=== PATIENT | female | born 1950 | race Caucasian/White ===

== ENCOUNTER 2017-07-04 15:14 | Inpatient (IN) | payer BC ==
[2017-07-04] MEDS ORDERED: Acetaminophen 325 MG Tab PO PRN (15:33)
[2017-07-04] MEDS ORDERED: Sodium Chloride 0.9% 10 ML Syringe FLUSH PRN (15:33)
[2017-07-04] MEDS ORDERED: Ondansetron 4 MG/2 ML SDV IV PRN (15:33)
[2017-07-04] MEDS ORDERED: Temazepam 15 MG Cap PO PRN (15:33)
[2017-07-04] MEDS ORDERED: Magnesium Hydroxide 400 MG/5 ML Susp 30 ML Cup PO PRN (15:33)
[2017-07-04] MEDS ORDERED: Calcium Carbonate 500 MG Tab.Chew PO PRN (15:37)
[2017-07-04] MEDS ORDERED: Enoxaparin 30 MG/0.3 ML Syringe SUBCUT SCH (15:45)
[2017-07-04 16:17] LABS: CHLORIDE,CL 101 mEq/L (98-106); SODIUM,NA 139 mEq/L (136-145)
[2017-07-04] MEDS ORDERED: Iopamidol 755 Mg/ML 100 ML Bottle IVPUSH ONE (16:28)
[2017-07-04] MEDS: methylPREDNISolone Sodium Succinate 125 MG/2 ML SDV IVPUSH SCH (16:56)
[2017-07-04] MEDS: cefTRIAXone 1 GM Vial IVPUSH SCH (16:58)
[2017-07-04] MEDS: Azithromycin 500 MG in Sodium Chloride 0.9% 250 ML IV SCH (17:02)
[2017-07-04] MEDS: Albuterol/Ipratropium 3.0-0.5 MG/3 ML Neb Soln NEB SCH ×2 (17:04→21:59)
[2017-07-05] MEDS: methylPREDNISolone Sodium Succinate 125 MG/2 ML SDV IVPUSH SCH ×2 (03:11→14:39)
[2017-07-05] MEDS ORDERED: Albuterol 0.083% 2.5 MG/3 ML Neb Soln INH PRN (07:40)
[2017-07-05] MEDS ORDERED: Montelukast 10 MG Tab PO SCH ×2 (08:00→20:00)
[2017-07-05] MEDS ORDERED: Albuterol 8 GM Inhaler INH SCH (08:00)
[2017-07-05] MEDS: Albuterol/Ipratropium 3.0-0.5 MG/3 ML Neb Soln NEB SCH ×4 (08:14→20:11)
[2017-07-05] MEDS: Hydrochlorothiazide 25 MG Tab PO SCH (08:14)
[2017-07-05] MEDS: Formoterol/Mometasone 100-5 MCG 8.8 GM Inhaler IH SCH ×2 (08:37→20:11)
[2017-07-05] MEDS: Levothyroxine 112 MCG Tab PO SCH (08:38)
--- NOTE | 2017-07-05 11:05 | PN ---
DATE: 07/05/2017 HISTORY: This is a 66-year-old female who came in with severe asthmatic bronchitis, yesterday, very dyspneic, admitted to the hospital. CTA chest, no PE, no masses. PHYSICAL EXAMINATION: This morning, NECK: Supple. CHEST: Inexpiratory wheezing. CARDIAC: Sounds are good. EXTREMITIES: No edema. LABORATORY DATA: Lab looked good. D-dimer was elevated at 1.58. White count elevated at 13.3. Otherwise everything else looks good. ASSESSMENT: ACUTE ASTHMATIC BRONCHITIS. P: Continue present therapy. MAGGI/LEBRON /[id number]
[2017-07-05] MEDS: cefTRIAXone 1 GM Vial IVPUSH SCH (14:42)
[2017-07-05] MEDS: Azithromycin 500 MG in Sodium Chloride 0.9% 250 ML IV SCH (14:46)
[2017-07-06] MEDS: methylPREDNISolone Sodium Succinate 125 MG/2 ML SDV IVPUSH SCH (02:37)
[2017-07-06] MEDS: Albuterol/Ipratropium 3.0-0.5 MG/3 ML Neb Soln NEB SCH (07:46)
[2017-07-06] MEDS: Levothyroxine 112 MCG Tab PO SCH (07:47)
[2017-07-06] MEDS: Hydrochlorothiazide 25 MG Tab PO SCH (07:47)
[2017-07-06] MEDS: Formoterol/Mometasone 100-5 MCG 8.8 GM Inhaler IH SCH (07:50)
--- NOTE | 2017-07-06 08:32 | DISCH ---
HOSPITAL COURSE: This is a 66-year-old female we attempted to treat as an outpatient for acute asthmatic bronchitis, came back severely dyspneic. D-dimer was elevated, so I did do a CTA of her chest which was normal. I did start an IV antibiotics, IV steroids, it run nicely. At the time of discharge, her lungs were relatively clear. Labs here in the hospital; urinalysis looked good. Again, D-dimer was elevated. CBC looked good. Mildly elevated white count probably from the steroids. DISPOSITION: The patient now discharged home to be seen back on a p.r.n. basis. DISCHARGE MEDICATIONS: Home medications plus Ceftin 250 p.o. b.i.d. for 7 days and prednisone 20 daily for 5 days. DISCHARGE DIAGNOSIS: 1. ACUTE ASTHMATIC BRONCHITIS. 2. HYPOTHYROIDISM. MAGGI/LEBRON /[id number]
== END 2017-07-06 10:13 | disposition home or self-care (01) | DRG 138 ==
LOC: UNDOADMIN 15:14 → CC.MS 15:14
PROVIDERS: ADMIT General Practice; ATTEND General Practice
DX: J21.9 Acute bronchiolitis, unspecified (principal); J45.909 Unspecified asthma, uncomplicated; E03.9 Hypothyroidism, unspecified; Z88.0 Allergy status to penicillin; Z88.1 Allergy status to other antibiotic agents; I10 Essential (primary) hypertension; Z88.8 Allergy status to other drugs, medicaments and biological substances; Z79.899 Other long term (current) drug therapy
CPT/HCPCS: 36415; 71275; 80053; 81001; 83735; 83880; 84443; 85025; 85379; 86140; 93005; 94640; A9270-GY; J0456; J0696; J2930; J7050; Q9967

== ENCOUNTER → 2018-02-10 | Day surgery (SDC) | payer MEDICARE, OTHER ==
[~2018-02-10] MED LIST: Glycopyrrolate 0.2 MG/ML SDV IVPUSH ONE; Lactated Ringers 1,000 ML IV SCH; Propofol 200 MG/20 ML SDV IV ONE
--- NOTE | 2018-02-10 13:53 | OR ---
DATE OF OPERATION: 02/10/2018 PREOPERATIVE DIAGNOSIS: 1. GASTROESOPHAGEAL REFLUX DISEASE. 2. FOLLOW UP COLON POLYPS. POSTOPERATIVE DIAGNOSIS: 1. GASTROESOPHAGEAL REFLUX DISEASE. 2. FOLLOW UP COLON POLYPS. SURGEON: Cyrus Fabian MD PROCEDURE: 1. EGD WITH BIOPSIES X4, RACHEL. 2. FULL-LENGTH COLONOSCOPY. ANESTHESIA: HOSPITALITY SPECIALIST. COMPLICATIONS: None. SPECIMEN: 1. Duodenal bulb biopsy x2. 2. RACHEL. 3. Fundal biopsy x1. 4. Distal esophageal biopsy x1. FINDINGS: 1. Full-length EGD. 2. Heterotopic gastric tissue, duodenal bulb. 3. Ectopic pancreatic tissue, gastric fundus. 4. Small hiatal hernia with reflux esophagitis, mild. 5. Full-length colonoscopy. 6. Minimal diverticulosis. RECOMMENDATIONS: Medical followup with Bethany Cazares PA-C. Routine colonoscopy every 10 years. INDICATIONS: The patient is having some issues with ongoing dyspepsia and reflux. She has had a history of colon polyps and Bethany sent her for both upper and lower endoscopy. DESCRIPTION OF PROCEDURE: The patient was prepped and draped, placed in the left lateral decubitus position. A lubricated Olympus gastroscope was inserted over a bit and advanced to cricopharyngeus area and easily intubated into the esophagus. Esophageal lining was benign in its entire course until its most distal portion where the patient has a small hiatal hernia and reflux esophagitis associated with it. It is very mild with no ulceration, stricturing, or Sloan's changes. Biopsy of the most affected site was taken. The scope was advanced into the stomach through the pylorus and into the second portion of the duodenum. The second portion of duodenum was fine. The duodenal bulb had some heterotopic gastric tissue and two biopsies were taken. The scope was brought back into the stomach and retroflexed. The upper fundus and cardia were unremarkable other than the hernia present. In the distal portion of the cardia prior to the antrum along the greater curvature, the patient had a focus of what looked like ectopic pancreatic tissue. Biopsy was done for confirmation. The rest of the fundus and antrum were unremarkable. CLOtest was obtained. Air was then suctioned. The scope was removed without complication. A lubricated Olympus colonoscope was then inserted and easily advanced to the cecum. Direct visualization of the ileocecal valve and cecal pouch was accomplished. We could not get down deep into the pouch due to the anatomy. The bowel prep was marginal in the right colon and much improved in the left. Upon withdrawal, the patient does have portillo diverticulosis. She had couple of sporadic tics in the right colon, as well as the left, but very minimal in severity. No signs of any polyps, masses, ulcerations, or bleeding sites. No vascular abnormalities or signs of colitis. There were only a couple of diverticula in the sigmoid colon. The rectal vault itself appeared benign. Retroflexion of scope in the rectum showed no anal lesions. Air was suctioned. Scope was removed without complication. LB/LEBRON /[id number]
== END ==
LOC: CC.SDS 08:35
PROVIDERS: ATTEND Family Medicine
DX: K21.9 Gastro-esophageal reflux disease without esophagitis (principal); Q40.2 Other specified congenital malformations of stomach; K31.7 Polyp of stomach and duodenum; K20.9 Esophagitis, unspecified; K44.9 Diaphragmatic hernia without obstruction or gangrene; K57.30 Diverticulosis of large intestine without perforation or abscess without bleeding; N39.0 Urinary tract infection, site not specified; M19.90 Unspecified osteoarthritis, unspecified site; J45.909 Unspecified asthma, uncomplicated; J44.9 Chronic obstructive pulmonary disease, unspecified; I10 Essential (primary) hypertension; E87.6 Hypokalemia; E03.9 Hypothyroidism, unspecified; E55.9 Vitamin D deficiency, unspecified; M19.021 Primary osteoarthritis, right elbow; Z86.010 Personal history of colon polyps; Z88.0 Allergy status to penicillin; Z88.8 Allergy status to other drugs, medicaments and biological substances; Z79.899 Other long term (current) drug therapy
CPT/HCPCS: 00811; 87081; 93005; J2704; J3490; J7120